=== PATIENT | male | born 1965 | race Caucasian/White ===

== ENCOUNTER 2017-02-25 08:10 | Day surgery (SDC) | payer OTHER ==
[~2017-02-25] VITALS: Ht 175.3 cm; Wt 109.0 kg
[~2017-02-25 08:10] MED LIST: 0.9% Sodium Chloride 1,000 ML IV SCH; ECHI350C PO; FEXO1TAB7 PO; GLUC-120 PO; INDO50CA PO; OMEP10CA4 PO; Sodium Chloride LOK Flush 10 mL Syringe IV PRN; fentaNYL-PF 50 mCg/mL 2 mL Inj IVPUSH PRN
[2017-02-25 08:54] VITALS: BP 126/80; PULSE 64; RESP 14; O2SAT 95
[2017-02-25 09:57] VITALS: BP 119/78; PULSE 66; RESP 14; O2SAT 94
[2017-02-25 10:07] VITALS: BP 116/75; PULSE 63; RESP 16; O2SAT 93
[2017-02-25 10:17] VITALS: BP 134/84; PULSE 60; RESP 16; O2SAT 97
--- NOTE | 2017-02-25 13:03 | ENDO ---
[address] [address] ENDOSCOPY PROCEDURE PATIENT: NICOLÁS MICHELLE : 1965 MR#: [id number] ADMIT: 02/25/2017 JOB ID: [id number] PROCEDURE: Colonoscopy. INDICATIONS: Screening. Patient's ASA classification is II. Mallampati score is II. MEDICATIONS: Versed at 5 mg, fentanyl 100 mcg. INSTRUMENT USED: PCF-H180AL. PREPARATION QUALITY: Fair. PROCEDURE DETAILS: After informed consent was obtained, the patient was brought to the GI suite, where he was placed on oxygen via nasal cannula and monitored with continuous pulse oximeter, telemetry, and blood pressure monitoring. A time-out was performed. Then, he was placed in a left lateral decubitus position and medications were administered for sedation. A digital rectal exam was performed with palpation of the prostate, which was unremarkable. The colonoscope was then inserted into the rectum and advanced under direct visualization to the cecum, which was identified by the presence of the ileocecal valve and appendiceal orifice. Once sigmoid was reached, colonoscope was withdrawn back into the rectum as the mucosa and lumen were examined. In the rectum, retroflexion was performed. Following retroflexion, remaining air in the rectum was suctioned, and procedure was completed. FINDINGS: 1. In the sigmoid colon, there was a diminutive polyp that was removed with cold biopsy forceps. 2. In the rectum, there was a diminutive polyp that was removed with cold biopsy forceps. 3. Scattered diverticula were seen throughout the sigmoid colon. 4. On digital rectal exam, there was a small external hemorrhoid. IMPRESSION: 1. Sigmoid polyp. 2. Rectal polyp. 3. Small external hemorrhoid. 4. Sigmoid diverticulosis. RECOMMENDATIONS: 1. Fiber rich diet. 2. Repeat colonoscopy pending polyp pathology results. COMPLICATIONS: None. ESTIMATED BLOOD LOSS: Less than 5 mL.
--- NOTE | 2017-02-28 13:10 | PATH ---
SURGICAL PATHOLOGY Attending Physician:Hitesh Martinez CASE STATUS: Signed Out PATIENT NAME: NICOLÁS MICHELLE PID: [id number] : 1965 DATE COLLECTED:02/25/2017 18:29 SPECIMEN: 1: Colon, Biopsy 2: Rectum, Biopsy CLINICAL HISTORY: 1). SIGMOID COLON POLYP 2). RECTAL POLYP FINAL DIAGNOSIS: 1. Sigmoid Colon Polyp. Hyperplastic polyp involving both biopsy fragments. 2. Rectal Polyp: Hyperplastic polyp involving both biopsy fragments. ICD10 K62.1 GROSS DESCRIPTION: The specimen is received in two formalin filled containers labeled with the patient's name. 1). The specimen is sublabeled "sigmoid colon polyp" and consists of 2 portions of tissue which aggregate to 0.2 x 0.2 x 0.2 CM. The specimen is entirely submitted in cassette 1A. 2). The specimen is sublabeled "rectal polyp" and consists of 2 portions of tissue which aggregate to 0.3 x 0.3 x 0.2 CM. The specimen is entirely submitted in cassette 2A. 02/25/2017 [facility] ICD-9 CODES: CPT CODES: 1: 09963 2: 41229 Electronically Signed Out Gurdeep Abbasi MD [facility] Pathology [facility] [address] [place] [address] Technical component performed at [facility], [address] [place] [address] Ave[address], [address]
== END 2017-02-25 23:59 | disposition home or self-care (01) ==
LOC: END 08:10
PROVIDERS: ATTEND Internal Medicine Gastroenterology
DX: Z12.11 Encounter for screening for malignant neoplasm of colon (principal); K63.5 Polyp of colon; K62.1 Rectal polyp; K57.90 Diverticulosis of intestine, part unspecified, without perforation or abscess without bleeding; K64.4 Residual hemorrhoidal skin tags
CPT/HCPCS: 45380; 99153; G0500; J2250; J3010; J7030